=== PATIENT | male | born 1995 | race Caucasian/White ===

== ENCOUNTER 2017-12-04 23:01 | Emergency (ER) | payer OTHER ==
[2017-12-05] MEDS ORDERED: Ketorolac 60 MG/2 ML SDV IM ONE (00:42)
[2017-12-05] MEDS ORDERED: Diphtheria,Pertussis(Acell),Tetanus Vaccine 0.5 ML SDV IM ONE (00:42)
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
[2017-12-05] MEDS ORDERED: Bacitracin Oint 1 GM U/D Packet TOP ONE ×2 (01:22→02:29)
[2017-12-05] MEDS ORDERED: Lidocaine 1% with EPINEPHrine 1:100,000 50 ML MDV SUBCUT STA (01:22)
[2017-12-05] MEDS ORDERED: fentaNYL 100 MCG/2 ML SDV IM ONE (02:20)
[2017-12-05] MEDS ORDERED: Bacitracin Oint 1 GM U/D Packet ONE (02:30)
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
--- NOTE | 2017-12-06 10:22 | CR ---
Degenerative changes ulnar trochlear reticulation. No definitive evidence for joint effusion. No defi nitive evidence for fracture. Tiny radiopaque punctate densities may be on the skin at the forearm po steriorly. Correlate clinically.
== END 2017-12-05 03:08 | disposition home or self-care (01) ==
LOC: JP.ED 23:01
DX: S51.011A Laceration without foreign body of right elbow, initial encounter (principal); V86.66XA Passenger of dirt bike or motor/cross bike injured in nontraffic accident, initial encounter; Z23 Encounter for immunization
CPT/HCPCS: 12001; 73080; 73562; 90471; 90715; 99284; J1885; J3010